=== PATIENT | female | born 2000 | race Caucasian/White ===

== ENCOUNTER → 2020-03-22 | Emergency (ER) | payer BC ==
[~2020-03-22] VITALS: Ht 167.6 cm; Wt 70.5 kg
[~2020-03-22] MED LIST: AMOXICILLIN 50500 MG; CLEOCIN HCL300 MG PO
[2020-03-22 11:55] VITALS: BP 120/80; PULSE 97; TEMP 98.1
[2020-03-22 13:22] LABS: BASO % 0.1 % (0.0-2.0); GRAN % 70.8 % (42.2-75.2); HEMATOCRIT 39.9 % (37.0-47.0); HEMOGLOBIN 13.3 g/dl (12.5-16.0); LYMPH # 1.7 (1.2-3.4); LYMPH % 16.9 % (20.0-51.0); MEAN CELL VOLUME 90 fl (80.0-100.0); MEAN CORPUSCULAR HEMOGLOBIN 30 pg (27.0-31.0); MEAN CORPUSCULAR HGB CONC 33 g/dl (33.0-37.0); MEAN PLATELET VOLUME 11.1 fl (7.4-10.4); MONO # 1.2 (0.1-0.6); MONO % 11.7 % (1.7-9.3); PLATELET COUNT 163 K/mm3 (130-400); RED BLOOD COUNT 4.44 M/mm3 (4.10-5.30); REDCELL DISTRIBUTION WIDTH-CV 12.8 % (11.5-14.5)
[2020-03-22 13:36] LABS: MONOSCREEN NEGATIVE
== END ==
LOC: COL.ER 11:40
PROVIDERS: Emergency Medicine
DX: J36 Peritonsillar abscess (principal); D68.1 Hereditary factor XI deficiency; I25.10 Atherosclerotic heart disease of native coronary artery without angina pectoris; I50.9 Heart failure, unspecified; I21.9 Acute myocardial infarction, unspecified; Z79.2 Long term (current) use of antibiotics
CPT/HCPCS: J1100